=== PATIENT | female | born 1995 | race Caucasian/White ===

== ENCOUNTER 2016-09-29 09:00 | Emergency (ER) | payer OTHER ==
--- NOTE | 2016-09-29 09:14 | UCPHY ---
H & P Time Seen by Provider: 09/29/16 09:14 Patient Type: New HPI/ROS: Chief complaint. Dizzy HPI. 21-year-old female with 1 month which she describes as dizziness. However she describes that she feels like she has slow mentation. 1-2 seconds black outs in which she feels she loses attention track of conversation and snaps out of it. She does not fall or is not injured. She is not sick. She has no near syncope. No sense of spinning or movement. No chest discomfort, shortness of breath, abdominal pain, vomiting. Symptoms are worse the last few days. Denies any change in circumstances that may have precipitated this. Normally healthy. ROS Constitutional. no fever/chills, no weakness Eyes. no problems with vision ENT. no sore throat, no nasal drainage Cardiovascular. no chest pain Respiratory. no shortness of breath, no cough Abdominal. no abdominal pain, no nausea/vomiting, no diarrhea . no problems urinating MS. no calf pain/swelling, no neck/back pain, no joint pain Skin. no rash Lymph. no swollen glands Neuro. Slow mentation Past Medical/Surgical History: Healthy Mom with recent diagnosis of hypothyroidism Social History: Single, nonsmoker, no alcohol Smoking Status: Never smoked Physical Exam: General Appearance: Alert well-developed female no distress vital signs significant for heart rate of 102 Eyes: Pupils equal and round no pallor or injection. ENT, Mouth: Mucous membranes are moist. Respiratory: There are no retractions, lungs are clear to auscultation. Cardiovascular: Regular rate and rhythm. Gastrointestinal: Abdomen is soft and nontender, no masses, bowel sounds normal. Neurological: Awake and alert, sensory and motor exams grossly normal. Skin: Warm and dry, no rashes. Musculoskeletal: Neck is supple nontender. Extremities symmetrical, full range of motion. Psychiatric: Patient is oriented X 3, there is no agitation. Constitutional: Initial Vital Signs Temperature (C) 36.4 C 09/29/16 09:10 Heart Rate 102 H 09/29/16 09:10 Respiratory Rate 20 09/29/16 09:10 Blood Pressure 145/89 H 09/29/16 09:10 O2 Sat (%) 100 09/29/16 09:10 O2 Delivery Mode Room Air Allergies/Adverse Reactions: No Known Allergies Allergy (Unverified 09/29/16 09:10) Home Medications: Medication Instructions Recorded NK [No Known Home Meds] 09/29/16 Medical Decision Making Procedures: IV normal saline with 1 L given ED Course/Re-evaluation: Re-evaluation at 11:00 a.m.. Patient is stable Patient and I discussed laboratory evaluation, treatment plan including criteria for return importance of follow-up and further evaluation. She expresses understanding and agreement Differential Diagnosis: This may well be more of an anxiety issue. I have considered electrolyte abnormality, infection, , thyroid issues. - Data Points Laboratory Results: Laboratory Results 09/29/16 09:53 09/29/16 09:53 09/29/16 09/29/16 09/29/16 09:53 09:53 09:53 WBC 6.71 10^3/uL 10^3/uL (3.80-9.50) RBC 4.56 10^6/uL 10^6/uL (4.18-5.33) Hgb 13.9 g/dL g/dL (12.6-16.3) Hct 40.8 % % (38.0-47.0) MCV 89.5 fL fL (81.5-99.8) MCH 30.5 pg pg (27.9-34.1) MCHC 34.1 g/dL g/dL (32.4-36.7) RDW 12.3 % % (11.5-15.2) Plt Count 293 10^3/uL 10^3/uL (150-400) MPV 10.8 fL fL (8.7-11.7) Neut % (Auto) 68.0 % % (39.3-74.2) Lymph % (Auto) 18.2 % % (15.0-45.0) Ware % (Auto) 11.6 % % (4.5-13.0) Eos % (Auto) 1.0 % % (0.6-7.6) Baso % (Auto) 0.9 % % (0.3-1.7) Nucleat RBC Rel Count 0.0 % % (0.0-0.2) Absolute Neuts (auto) 4.56 10^3/uL 10^3/uL (1.70-6.50) Absolute Lymphs (auto) 1.22 10^3/uL 10^3/uL (1.00-3.00) Absolute Monos (auto) 0.78 10^3/uL 10^3/uL (0.30-0.80) Absolute Eos (auto) 0.07 10^3/uL 10^3/uL (0.03-0.40) Absolute Basos (auto) 0.06 10^3/uL 10^3/uL (0.02-0.10) Absolute Nucleated RBC 0.00 10^3/uL 10^3/uL (0-0.01) Immature Gran % 0.3 % % (0.0-1.1) Immature Gran # 0.02 10^3/uL 10^3/uL (0.00-0.10) Sodium 143 mEq/L mEq/L (134-144) Potassium 3.6 mEq/L mEq/L (3.5-5.2) Chloride 102 mEq/L mEq/L (97-110) Carbon Dioxide 24 mEq/l mEq/l (22-31) Anion Gap 17 mEq/L H mEq/L (8-16) BUN 7 mg/dL mg/dL (7-23) Creatinine 0.8 mg/dL mg/dL (0.6-1.0) Estimated GFR > 60 Glucose 91 mg/dL mg/dL (70-100) Calcium 10.0 mg/dL mg/dL (8.5-10.4) TSH 3.260 uIU/mL uIU/mL (0.465-4.680) Beta HCG, Qual NEGATIVE Medications Given: Discontinued Medications Sodium Chloride (Ns) 1,000 mls @ 0 mls/hr IV ONCE ONE PRN Reason: Wide Open Stop: 09/29/16 09:23 Last Admin: 09/29/16 09:25 Dose: 1,000 mls Departure - Departure Disposition: Home, Routine, Self-Care Clinical Impression: Dizziness Condition: Good Instructions: Lightheadedness (ED) Additional Instructions: Get plenty of rest in easy activity. Drink plenty of fluids and stay hydrated. Return for worsening symptoms. Follow up with [facility] for further evaluation Referrals: BRINDA RUSSELL [Other] - As per Instructions [facility] [Outside] - 2-3 days without fail - PQRS PQRS Measurement: 134: Depression screening and followup, PRIME MD-PHQ2 (12 years and older) Over the last 2 weeks, how often have you been bothered by any of the following problems? 1. Feeling down, depressed, or hopeless? 2. Little interest or pleasure in doing things? Patient answered no to both 1 and 2 130: Documentation of medications. Reviewed all patient medications, doses, route and frequency. 226: Do you smoke? No. pment not available.]
[2016-09-29] MEDS ORDERED: NS 1,000 ML IV ONE (09:22)
[2016-09-29 10:06] LABS: % IMMATURE GRANULYOCYTES 0.3 % (0.0-1.1); ABSOLUTE IMMATURE GRANULOCYTES 0.02 10^3/uL (0.00-0.10); ADD DIFF? NO; ADD MORPH? NO; ADD SCAN? NO; ATYPICAL LYMPHOCYTE FLAG 20 (0-99); FRAGMENT RBC FLAG 0 (0-99); HEMATOCRIT 40.8 % (38.0-47.0); HEMOGLOBIN 13.9 g/dL (12.6-16.3); LEFT SHIFT FLG 0 (0-99); LIPEMIA HEMOLYSIS FLAG 90 (0-99); MEAN CELL HEMOGLOBIN 30.5 pg (27.9-34.1); MEAN CELL HEMOGLOBIN CONCENTR. 34.1 g/dL (32.4-36.7); MEAN CELL VOLUME 89.5 fL (81.5-99.8); MEAN PLATELET VOLUME 10.8 fL (8.7-11.7); PLATELET CLUMPS FLAG 0 (0-99); PLATELET COUNT 293 10^3/uL (150-400); RED BLOOD CELL COUNT 4.56 10^6/uL (4.18-5.33); RED CELL DISTRIBUTION WIDTH 12.3 % (11.5-15.2)
[2016-09-29 10:18] LABS: ANION GAP 17 mEq/L (8-16); CARBON DIOXIDE 24 mEq/l (22-31); CHLORIDE 102 mEq/L (97-110); CREATININE 0.8 mg/dL (0.6-1.0); GLOMERULAR FILTRATION RATE > 60; GLUCOSE 91 mg/dL (70-100); POTASSIUM 3.6 mEq/L (3.5-5.2); SODIUM 143 mEq/L (134-144)
[2016-09-29 11:23] VITALS: BP 116/76; PULSE 77; RESP 16; TEMP 97.9; O2SAT 97
== END 2016-09-29 11:22 | disposition home or self-care (01) ==
LOC: CED 09:00
DX: R42 Dizziness and giddiness (principal)
CPT/HCPCS: 80048-PO; 84443-PO; 84703-PO; 85025-PO; 96360-PO; G0463-PO